=== PATIENT | female | born 1945 | race Caucasian/White ===

== ENCOUNTER → 2019-08-20 | Outpatient (CLI) | payer OTHER ==
[~2019-08-20] VITALS: Ht 162.6 cm; Wt 85.3 kg
[~2019-08-20] MED LIST: ASPIR-LOW81 MG PO; AVAPRO75 MG PO; BUPROPION XL300 MG PO; CALCIUM 1,0001 EACH PO; FISH OIL 1,0001 EAC9 PO; FLONASE 0.05%50 MCG NASAL; GLUCOPHAGE1000 MG PO; LEVOXYL25 MCG PO; LIPITOR40 MG PO; MAGNESIUM250 M1 PO; MELATONIN3 M1 PO; MULTI VITAMIN1 EACH PO; NEXIUM20 MG PO; POTASSIUM20 PO; SINGULAIR 10 MG10 MG PO; SYSTANE GEL EYE10 ML OPHTHALMIC; SYSTANE ULTRA 010 ML OPHTHALMIC
--- NOTE | 2019-08-20 12:13 | P ---
[facility] [address] PROCEDURE REPORT Name: KEDAR LEE [id number] Admission: 08/20/19 Attend Phys: Adams French Discharge: Date of : 47 Report #: [id number] THIS REPORT FOR: //name// CC: Adams Jimenez [facility] physician/PCP SIVA Mcleod DATE OF SERVICE: 08/20/2019 PROCEDURE PERFORMED: Upper endoscopy with biopsies and esophageal dilation. HISTORY OF PRESENT ILLNESS: The patient is a 73-year-old female who reports dysphagia beginning in July of this year, primarily to solid foods and pills. Denies any heartburn symptoms. No recent upper endoscopy. Plan is for EGD with dilation. DESCRIPTION OF PROCEDURE: The risks and benefits of the procedure were explained to the patient, those risks including but not limited to bleeding, perforation and the risk of sedation. She understood these risks and gave informed consent. Sedation was given using propofol per anesthesia. Next, using a standard Olympus upper endoscope, the scope was placed in the patient's mouth and advanced under direct vision through the esophagus, stomach and into the second portion of the duodenum. The larynx was normal in appearance. The upper and mid esophagus was normal. At the GE junction, a possible short segment of Mccartney's was noted. Biopsies were obtained. Overall, the gastric mucosa was normal. The pylorus was normal and patent. The duodenal bulb, first and second portion were all normal. The scope was then brought back up into the patient's stomach and a Savary guidewire was inserted through the scope, leaving the guidewire in place as the scope was then withdrawn. Next, a 51-[place] Savary dilation of the esophagus was then performed without difficulty. The wire and dilator were removed. The scope was reintroduced into the patient's stomach. There was no evidence of mucosal tear after dilation. The scope was then withdrawn and the procedure terminated. The patient tolerated the procedure well. IMPRESSION: 1. 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 2. Otherwise, normal upper endoscopy. RECOMMENDATIONS: 1. Await biopsy results. 2. Observe the patient post-dilation. 3. If the patient has Mccartney's, would recommend daily PPI therapy. [address] [address] PROCEDURE REPORT Name: KEDAR LEE Room #: REG Dunia Mckee#: [id number] Admission: 08/20/19 Attend Phys: Adams French Discharge: Date of : 47 Report #: [id number] Thank you for allowing me to participate in her care. <ELECTRONICALLY SIGNED> By: Adams Jimenez MD 08/20/19 1213 1127 1153 Adams iJmenez MD /nt
--- NOTE | 2019-08-22 18:06 | PATH ---
[facility] [address] [place] [address] PATHOLOGY RPT PROCEDURE Name: WENDY BRENNAN Room #: REG NEIL Cotton.#: [id number] Admission: 08/20/19 Date of : 47 Discharge: Report #: [id number] Path Case #: [id number] [facility] Accession Number: [id number] . 01 Material submitted: . esophagus - BX OF DISTAL ESOPHAGUS. Modifiers: distal . 01 Clinical history: . Dysphagia . 02 Diagnosis: Gastroesophageal mucosa, distal esophagus R/O Mccartney's, endoscopic biopsy: - Mild esophagitis associated with features compatible with reflux esophagitis. - Moderate chronic inflammation. - Negative for intestinal metaplasia or dysplasia. (IUV:solitario; 08/22/2019) QMS 08/22/2019 1308 Local . 02 Electronically signed: . Elizabeth Dia MD, Pathologist NPI- [id number] . 01 Gross description: . Received in formalin labeled "Wendy Brennan, BX of distal esophagus, rule out Mccartney's," are 2 segments of jesus soft tissue measuring 0.7 x 0.3 x 0.2 cm in aggregate dimensions and ranging from 0.3 to 0.4 cm in maximum dimension. The specimen is submitted entirely in cassette A1. (TSD; 08/20/2019) TOB/TOB 08/20/2019 1946 Local . 02 Pathologist provided ICD-10: K21.0 . 02 CPT . 717054 Specimen Comment: A courtesy copy of this report has been sent to [phone], [phone] Specimen Comment: [phone] Specimen Comment: Report sent to / DR GUTIERREZ Performed at: 01 [facility] [address] [id number] MD Richard Mcgregor MD Phone: [phone] Performed at: 02 [facility] [address] [place] [address] PATHOLOGY RPT PROCEDURE Name: WENDY BRENNAN Room #: REG NEIL Mckee#: [id number] Admission: 08/20/19 Date of : 47 Discharge: Report #: [id number] Path Case #: [id number] [address] [place] [id number] MD Elizabeth Dia MD Phone: [phone]
== END | disposition home or self-care (01) ==
LOC: GI 08:38
DX: R13.12 Dysphagia, oropharyngeal phase (principal); K21.0 Gastro-esophageal reflux disease with esophagitis; I10 Essential (primary) hypertension; E11.9 Type 2 diabetes mellitus without complications; E78.5 Hyperlipidemia, unspecified; F32.9 Major depressive disorder, single episode, unspecified; Z90.710 Acquired absence of both cervix and uterus; Z90.49 Acquired absence of other specified parts of digestive tract; Z98.41 Cataract extraction status, right eye; Z98.42 Cataract extraction status, left eye; Z79.899 Other long term (current) drug therapy; Z88.2 Allergy status to sulfonamides; Z88.8 Allergy status to other drugs, medicaments and biological substances; Z79.82 Long term (current) use of aspirin